=== PATIENT | male | born 1950 | race Caucasian/White ===

== ENCOUNTER 2019-03-20 09:31 | Outpatient (CLI) | payer MEDICARE, OTHER ==
--- NOTE | 2019-03-20 11:08 | MRI ---
MRI Upper Ext Jt Rt WO Con History: M 24.511 right shoulder pain. Loss of range of motion. Comparison: None. Findings: Biceps tendon: Extra-articular biceps tendon is intact. Low-grade intra-articular tendinosi s. Labrum: Mild loss of volume of the anterior inferior labrum along with a posterior superior labral te ar. Rotator cuff: Near full-thickness U-shaped tear supraspinatus tendon with sparing of the leading edge 3 mm rotator cable fibers. This occurs at the footprint with a 1.8 cm gap. 50% undersurface tear infraspinatus tendon with rotator cable retracted to the medial one third humer al head. Moderate tendinosis subscapularis. Teres minor is intact. Bones: Type III acromion narrowing the subacromial space with undersurface keel osteophyte of the cor acoacromial ligament. Advanced degenerative disease acromio clavicular joint. Normal glenoid version. Muscles: No significant muscle atrophy. Soft tissues: Moderate synovitis of the rotator interval. Moderate subacromial/subdeltoid bursa effus ion. Impression: 1. Full-thickness U-shaped tear involving nearly the entire supraspinatus tendon with relative sparin g of the leading edge 3 mm rotator cable fibers. Tear occurs at the footprint with a 1.8 cm gap. 2. High-grade 50% undersurface infraspinatus tendon tear from the footprint with the rotator cable re tracted to the medial one third humeral head. 3. Free edge anterior labral tear as well as a posterior superior intrasubstance labral tear. 4. Type III acromion narrowing the subacromial space. 5. Moderate fibrosis of the rotator interval.
== END 2019-03-20 09:32 | disposition home or self-care (01) ==
LOC: SCSMRI 09:31
PROVIDERS: ATTEND Orthopaedic Surgery
DX: M25.511 Pain in right shoulder (principal); M75.121 Complete rotator cuff tear or rupture of right shoulder, not specified as traumatic; S43.401A Unspecified sprain of right shoulder joint, initial encounter; M25.811 Other specified joint disorders, right shoulder

== ENCOUNTER 2019-05-07 09:17 | Outpatient (CLI) | payer MEDICARE, OTHER ==
[2019-05-07 10:38] LABS: #Eosinphils 0.2 thou/uL (0.0-0.7); #Lymphocytes 1.4 thou/uL (1.20-3.40); #Monocytes 0.6 thou/uL (0.11-0.59); #Neutrophils 2.7 thou/uL (1.40-6.50); %Basophils 0.7 % (0.0-1.0); %Eosinophils 3.6 % (0.0-10.0); %Lymphocytes 27.7 % (21.0-51.0); %Monocytes 12.6 % (0.0-10.0); %Neutrophils 55.4 % (42.0-75.0); Hemoglobin 13.8 g/dL (14.0-18.0); Mean Corpuscular HGB CONC 32.4 g/dL (32.0-36.0); Mean Corpuscular Hemoglobin 29.4 pg (27.0-31.0); Mean Corpuscular Volume 90.8 fL (78.0-98.0); Mean Platelet Volume 7.2 fL (7.4-10.4); Platelet Count 349 thou/uL (130-400); RBC Distribution Width 12.5 % (11.5-14.5); Red Blood Cell (RBC) Count 4.68 mill/uL (4.70-6.10); White Blood Cell (WBC) Count 4.9 thou/uL (4.8-10.8)
[2019-05-07 10:56] LABS: Anion Gap 14 mmol/L (10-20); BUN (Urea Nitrogen) 19 mg/dL (8.4-25.7); Calc. Creatinine Clearance 0 mL/min (70-130); Calcium 9.6 mg/dL (7.8-10.44); Carbon Dioxide 24 mmol/L (23-31); Chloride 105 mmol/L (98-107); Estimated GFR-MDRD 61; Glucose 115 mg/dL (80-115); Potassium 4.7 mmol/L (3.5-5.1); Sodium 138 mmol/L (136-145)
--- NOTE | 2019-05-07 15:52 | EKG ---
Test Reason : Blood Pressure : / mmHG Vent. Rate : 052 BPM Atrial Rate : 052 BPM P-R Int : 172 ms QRS Dur : 092 ms QT Int : 440 ms P-R-T Axes : 057 073 083 degrees QTc Int : 409 ms Sinus bradycardia Nonspecific ST abnormality Abnormal ECG Confirmed by TAMAR MARTINEZ ([id number]) on 05/07/2019 3:52:28 PM Referred By: IERO Confirmed By:TAMAR MARTINEZ
== END 2019-05-07 09:18 | disposition home or self-care (01) ==
LOC: LABBT 09:17
PROVIDERS: ATTEND Orthopaedic Surgery
DX: Z01.818 Encounter for other preprocedural examination (principal); M75.101 Unspecified rotator cuff tear or rupture of right shoulder, not specified as traumatic
CPT/HCPCS: 80048; 85025; 93005; 93010

== ENCOUNTER 2019-05-09 05:47 | Day surgery (SDC) | payer MEDICARE, OTHER ==
[2019-05-07 09:28] VITALS: BMI 28.5
[2019-05-09] MEDS ORDERED: Bupivacaine/Epinephrine 0.25% 30 ML VIAL ONE (06:28)
[2019-05-09] MEDS ORDERED: Clindamycin/D5W 600 mg/50 ml Premix Bag ONE (06:29)
[2019-05-09] MEDS ORDERED: Midazolam HCl 2 mg/2 ml Vial ONE (06:33)
[2019-05-09] MEDS ORDERED: Fentanyl 100 MCG/2 ML VIAL ONE ×2 (06:33→10:17)
[2019-05-09] MEDS ORDERED: Lidocaine 1% (PF) 30 ML VIAL ONE (06:34)
[2019-05-09] MEDS ORDERED: Ketorolac Tromethamine 30 MG/ML VIAL IVP PRN (07:11)
[2019-05-09] MEDS ORDERED: Ropivacaine 0.2% 550 ML 550 ML NERVE BLCK SCH (07:11)
[2019-05-09] MEDS ORDERED: Promethazine HCl 25 MG/ML VIAL IM PRN (07:11)
[2019-05-09] MEDS ORDERED: HYDROcodone/Acetaminophen 5/325 mg Tablet PO PRN ×2 (07:11)
[2019-05-09] MEDS ORDERED: Zolpidem Tartrate 5 MG TAB PO PRN (07:11)
[2019-05-09] MEDS ORDERED: Ondansetron PF 4 MG/2 ML Vial IVP PRN (07:11)
[2019-05-09] MEDS ORDERED: traMADol HCl 50 MG TAB PO PRN ×2 (07:11)
[2019-05-09] MEDS ORDERED: Promethazine HCl 25 MG/ML VIAL ONE (09:34)
--- NOTE | 2019-05-09 15:04 | OP ---
DATE OF PROCEDURE: 05/09/2019 PREOPERATIVE DIAGNOSES: Right shoulder impingement, rotator cuff tear, and biceps tendon tear. POSTOPERATIVE DIAGNOSES: Right shoulder impingement, rotator cuff tear, and biceps tendon tear. PROCEDURES PERFORMED: 1. Right shoulder arthroscopy with subacromial decompression. 2. Arthroscopic rotator cuff repair. 3. Open biceps tenodesis. [employer]AD [employer]: Yoni Mascorro PA-C ESTIMATED BLOOD LOSS: Less than 30. COMPLICATIONS: None. IMPLANTS: We used one triple-loaded Titanium anchor for the cuff repair and a 7 x 23 BioComposite Bio-Tenodesis screw for the biceps. DISPOSITION: He did go to recovery room in stable condition. ANESTHESIA: He did have a general anesthetic as well as a preoperative block. INDICATIONS: This is a 68-year-old male, who comes in complaining of pain and weakness of the arm. He has failed nonoperative treatment and at this time opted for surgery for rotator cuff tear. DESCRIPTION OF PROCEDURE: After all appropriate consent forms were explained and signed, he was taken back to the operative room and at this time was given general anesthetic. Once the level of anesthesia was appropriate, he was rolled into the left lateral decubitus position. All bony prominences were well padded. Beanbag was inflated to hold in this position. The right arm was then taken through full range of motion. The arm was then suspended with 15 pounds in standard arthroscopic fashion. The right shoulder and upper extremity were prepped and draped in standard surgical fashion. Bony anatomical landmarks were drawn out and the subacromial space was infiltrated with Marcaine with epinephrine. Posterior portal was established. Scope was placed into the glenohumeral joint. Anterior working portal was made using a needle localization technique and diagnostic arthroscopy commenced. Immediately, we noted that the biceps tendon was subluxed secondary to rotator cuff tear as well as large degenerative SLAP tear. The SLAP tear went up into the biceps groove. At this time, a green cannula was placed anteriorly and an 18-gauge needle was used to stout the biceps tendon and place a stitch through it. Biceps was taken off the superior labrum using the surface energy. This area was debrided. Remaining diagnostic arthroscopy showed the articular surface of the humeral head and glenoid to be in good condition. No loose bodies were noted in the axillary pouch. A rotator cuff tear was noted from the undersurface and the shaver was introduced through the cannula to debride the undersurface of the tear. The subscapularis was intact and at this time, scope was removed, replaced in the subacromial space. Lateral working portal was then made and at this time, the bursa was removed from off the underlying rotator cuff to evaluate the tear. The edges were smoothed and freshened up with a shaver and all soft tissue was removed from the bony insertion site on the tuberosity. At this time, a passport cannula was placed laterally. The tear was such a manner that it was felt that we needed a [id number] stitch at the apex of the tear and a Scorpion needle was used to place a FiberWire suture. This was then tied at the apex. Once this was done, we then placed one titanium triple-loaded anchor. We decided secondary to small stature of this tear. We would tie 3 simple sutures. The Scorpion device was used to get a nice grasp of tendon and once this was done for all 3 sets of sutures, we then tied these from back to front. This gave us a nice close down repair. At this time, we then removed the scope and, drained the shoulder and went about doing the biceps. A 15 blade was used to incise down through skin. Bovie was used to coagulate any brisk venous bleeding. Sharp dissection was used to cut down through the deltoid fascia. Finger was then used to dissect in line with the deltoid fibers to the underlying transverse humeral ligament. Transverse humeral ligament was opened up. Biceps tendon was pulled into the wound. The tendon was sutures and the intra-articular portion was removed. At this time, we then placed our guidewire. We then reamed with a 7-mm reamer to a depth of 25. We then placed our 7 x 23 BioComposite Bio-Tenodesis screw in standard fashion. Sutures were tied over top of this, so the screw could not back out. At this time, we will finish this portion of procedure. The wound was thoroughly irrigated and dried. Deltoid was allowed to fall upon itself. A running Vicryl was used to close our deltoid fascia, 2-0 Vicryl and nylon sutures were used on the skin. Each portal was closed with a simple nylon stitch. Once this was done, a bulky sterile dressing was applied and the patient was then awakened. He was taken to the recovery room in stable condition. All counts were correct at the end of the case and he did receive preoperative IV antibiotics. Job ID: [id number]
== END 2019-05-09 13:15 | disposition home or self-care (01) ==
LOC: SDC 05:47
PROVIDERS: ATTEND Orthopaedic Surgery
PROC: 0LQ14ZZ Repair Right Shoulder Tendon, Percutaneous Endoscopic Approach (ICD-10-PCS; principal; 2019-05-09)
PROC: 0RHJ44Z Insertion of Internal Fixation Device into Right Shoulder Joint, Percutaneous Endoscopic Approach (ICD-10-PCS; 2019-05-09)
PROC: 0RNJ4ZZ Release Right Shoulder Joint, Percutaneous Endoscopic Approach (ICD-10-PCS; 2019-05-09)
PROC: 0LS10ZZ Reposition Right Shoulder Tendon, Open Approach (ICD-10-PCS; 2019-05-09)
PROC: 0RHJ04Z Insertion of Internal Fixation Device into Right Shoulder Joint, Open Approach (ICD-10-PCS; 2019-05-09)
PROC: 3E0T3BZ Introduction of Anesthetic Agent into Peripheral Nerves and Plexi, Percutaneous Approach (ICD-10-PCS; 2019-05-09)
DX: S46.211A Strain of muscle, fascia and tendon of other parts of biceps, right arm, initial encounter (principal); M75.121 Complete rotator cuff tear or rupture of right shoulder, not specified as traumatic; M25.811 Other specified joint disorders, right shoulder; S43.431A Superior glenoid labrum lesion of right shoulder, initial encounter; G89.18 Other acute postprocedural pain; I10 Essential (primary) hypertension; E78.5 Hyperlipidemia, unspecified; N40.0 Benign prostatic hyperplasia without lower urinary tract symptoms; G47.31 Primary central sleep apnea; Z79.899 Other long term (current) drug therapy; Z88.0 Allergy status to penicillin; Z99.89 Dependence on other enabling machines and devices
CPT/HCPCS: 23430; 29826; 29827; 64416; A4306; C1713; J2001; J2250; J2550; J2795; J3010; J3490